=== PATIENT | male | born 1985 | race Caucasian/White ===

== ENCOUNTER 2016-10-25 01:13 | Emergency (ER) | payer SELFPAY ==
[~2016-10-25] VITALS: Ht 170.2 cm; Wt 74.5 kg
[2016-10-25 01:17] VITALS: Ht 170.2 cm; Wt 74.5 kg
[2016-10-25] MEDS ORDERED: IBUP-1542 PO (01:37)
[2016-10-25] MEDS ORDERED: BACTDS PO (01:37)
[2016-10-25] MEDS ORDERED: CEPH-443 PO (01:37)
--- NOTE | 2016-10-25 01:49 | ERD ---
ER Documentation Chief Complaint Date/Time DATE: 10/25/16 TIME: 01:40 Chief Complaint Skin lesion scalp area for 2 weeks HPI 36-year-old male presents here in emergency department for complaints of a skin lesion in the scalp for 2 weeks, patient noticed to be red and swollen, has some discharge coming out from it. Patient complaining of pain, throbbing pain, 6/10 scale, is worse upon touching the area patient denies any fever. Patient did not take any medications elevated symptoms. Patient states this started as a small lesion it got bigger. Patient denies any fever or chills. Patient denies any lesions in other parts of the body ROS All systems reviewed and are negative except as per history of present illness. Medications Home Meds Active Scripts Ibuprofen* (Motrin*) 600 Mg Tab, 600 MG PO Q6H Y for PAIN AND OR ELEVATED TEMP, #30 TAB Prov:JOSS DONOHUE NP 10/25/16 Cephalexin* (Keflex*) 500 Mg Capsule, 500 MG PO QID for 10 Days, CAP Prov:JOSS DONOHUE NP 10/25/16 Sulfamethoxazole-Trimethoprim* (Bactrim* DS) 800-160 Mg Tab, 1 TAB PO BID for 10 Days, TAB Prov:JOSS DONOHUE NP 10/25/16 Allergies Allergies: Coded Allergies: No Known Allergy (Unverified , 10/25/16) PMhx/Soc Medical and Surgical Hx: pt denies Medical Hx, pt denies Surgical Hx FmHx Family History: No coronary disease, No diabetes, No other Physical Exam Vitals Vital Signs Date Time Temp Pulse Resp B/P Pulse Ox O2 Delivery O2 Flow Rate FiO2 10/25/16 01:17 98.4 99 20 148/91 100 Physical Exam GENERAL: The patient is well developed and appropriate for usual state of health, in no apparent distress. CHEST: Clear to auscultation bilaterally. There are no rales, wheezes or rhonchi. HEART: Regular rate and rhythm. No murmurs, clicks, rubs or gallops. No S3 or S4. ABDOMEN: Soft, nontender and nondistended. Good bowel sounds. No rebound or guarding. No gross peritonitis. No gross organomegaly or masses. No Moseley sign or McBurney point tenderness. BACK: No midline or flank tenderness. EXTREMITIES: Equal pulses bilaterally. There is no peripheral clubbing, cyanosis or edema. No focal swelling or erythema. Full range of motion. Grossly neurovascularly intact. NEURO: Alert and oriented. Cranial nerves 2-12 intact. Motor strength in all 4 extremities with 5/5 strength. Sensation grossly intact. Normal speech and gait. SKIN: Noted 3 cm diameter cystic lesion in the right scalp area, tender on palpation, no fluctuance noted, noticed serous sanguinous discharge. There is no apparent rash or petechia. The skin is warm and dry. HEMATOLOGIC AND LYMPHATIC: There is no evidence of excessive bruising or lymphedema. No gross cervical, axillary, or inguinal lymphadenopathy. Procedures/MDM Medical decision making: Patient's symptoms most likely consistent with a infected lesion, is a skin lesion noted in the scalp area, no symptoms of any abscess at this time. Incision and drainage not indicated at this time. No symptoms of sepsis at this time. Patient does not have any fever. Patient appears well and is hemodynamically stable. Patient was advised to see a assistant scientist specialist for possible removal of the skin lesion and have advised to have a biopsy done. Patient was given prescription for Bactrim, Keflex, ibuprofen, and is advised to follow with primary care doctor in 2-3 for reevaluation of symptoms. Patient was advised to return to emergency department for any worsening symptoms, when checked with primary care doctor in 2 days Departure Diagnosis: Primary Impression: Infected skin lesion Condition: Stable Patient Instructions: Mrsa Skin Infection, Suspected Or Confirmed Referrals[facility] Usted se thornton hecho un examen mdico de control que le indica que no est en wayne condicin que requiera tratamiento urgente en el Departamento de Emergencia. Un estudio ms profundo y el tratamiento de thornton condicin pueden esperar sin ningn riesgo hasta que usted sea atendida/o en el consultorio de thornton mdico o wayne cl star. Es responsabilidad suya arreglar wayne trish para el seguimiento del debbie. MANEJO DE CONDICIONES NO URGENTES EN EL FUTURO 1) Si usted tiene un mdico de atencin primaria: Usted debera llamar a thornton mdico de atencin primaria antes de venir al departamento de emergencia. Despus de las horas de consultorio, thornton doctor o thornton asociado/a est disponible por telfono. El mdico o enfermero de erlinda en el servicio telefnico puede asesorarle por beata medio para atender el problema, o debbie contrario se puede programar wayne trish. 2) Si usted no tiene un mdico de atencin primaria: Llame al mdico o clnica de referencia que aparece abajo moises las horas de consultorio para hacer wayne trish para que le vean. CLINICAS: [place] [id number] [phone] [facility] [phone] [facility] [phone] [place] [id number] [phone] [facility] [place] [address] [phone] [facility] [phone] [address] [facility] () Usted se thornton hecho un examen mdico de control que le indica que no est en wayne condicin que requiera tratamiento urgente en el Departamento de Emergencia. Un estudio ms profundo y el tratamiento de thornton condicin pueden esperar sin ningn riesgo hasta que usted sea atendida/o en el consultorio de thornton mdico o wayne cl star. Es responsabilidad suya arreglar wayne trish para el seguimiento del debbie. MANEJO DE CONDICIONES NO URGENTES EN EL FUTURO 1) Si usted tiene un mdico de atencin primaria: Usted debera llamar a thornton mdico de atencin primaria antes de venir al departamento de emergencia. Despus de las horas de consultorio, thornton doctor o thornton asociado/a est disponible por telfono. El mdico o enfermero de erlinda en el servicio telefnico puede asesorarle por beata medio para atender el problema, o debbie contrario se puede programar wanye trish. 2) Si usted no tiene un mdico de atencin primaria: Llame al mdico o condado institucions de referencia que aparece abajo moises las horas de consultorio para hacer wayne trish para que le vean. SI USTED NO PUEDE PAGAR PARA WAQAS UN MEDICO puede ir a: [facility] [address] [place] [address] [facility] [address] [place] [address] [facility] [address] [place] [address] [facility] [address] [place], [place] [id number] CUISIA,JOSS Rubio NP Oct 25, 2016 01:49
== END 2016-10-25 01:55 | disposition home or self-care (01) ==
LOC: FTE 01:13
DX: L98.9 Disorder of the skin and subcutaneous tissue, unspecified (principal); L08.9 Local infection of the skin and subcutaneous tissue, unspecified
CPT/HCPCS: 99284

== ENCOUNTER 2018-05-22 04:50 | Emergency (ER) | END 2018-05-22 07:11 | disposition home or self-care (01) ==